=== PATIENT | male | born 1945 | race Caucasian/White ===

== ENCOUNTER → 2018-02-27 | Outpatient (CLI) | payer OTHER ==
[~2018-02-27] MED LIST: IOPAMIDOL (ISOVUE 370) 100 ML BTL IV ONE
== END ==
LOC: FIMAGING 15:41
PROVIDERS: ATTEND Internal Medicine
DX: R93.5 Abnormal findings on diagnostic imaging of other abdominal regions, including retroperitoneum (principal); Z95.828 Presence of other vascular implants and grafts
CPT/HCPCS: 74174; Q9967

== ENCOUNTER → 2018-07-27 | Outpatient (CLI) | payer OTHER | LOC: FIMAGING 19:05 | PROVIDERS: ATTEND Psychiatry & Neurology Neurology | DX: R90.82 White matter disease, unspecified (principal); R51 Headache; R09.02 Hypoxemia; G47.00 Insomnia, unspecified ==

== ENCOUNTER → 2018-08-24 | Outpatient (CLI) | payer OTHER | LOC: FIMAGING 15:26 | PROVIDERS: ATTEND Psychiatry & Neurology Neurology | DX: M50.33 Other cervical disc degeneration, cervicothoracic region (principal); Z98.1 Arthrodesis status ==

== ENCOUNTER 2018-09-18 21:29 | Emergency (ER) | payer OTHER ==
--- NOTE | 2018-09-18 21:50 | EDPHY ---
H & P Stated Complaint: MENCHACA today with HTN 190s at home Time Seen by Provider: 09/18/18 21:45 HPI/ROS: CHIEF COMPLAINT: Headache, hypertension HISTORY OF PRESENT ILLNESS: The patient presents to the ED for evaluation of a 3 day history of occipital headache. The patient noted that his blood pressure was high this evening with a systolic blood pressure of 190 at home. The patient typically takes 10 mg of amlodipine at night which she had taken earlier today. The patient denies any history of fall or trauma. 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 The patient denies any acute numbness or weakness. He denies any history of fall or trauma. He denies additional acute complaints. REVIEW OF SYSTEMS: A comprehensive 10 point review of systems is otherwise negative aside from elements mentioned in the history of present illness. Source: Patient Exam Limitations: No limitations - Personal History Current Tetanus/Diphtheria Vaccine: Yes Current Tetanus Diphtheria and Acellular Pertussis (TDAP): Yes - Medical/Surgical History Hx Asthma: No Hx Chronic Respiratory Disease: No Hx Diabetes: Yes Hx Cardiac Disease: Yes Hx Renal Disease: No Hx Cirrhosis: No Hx Alcoholism: No Hx HIV/AIDS: No Hx Splenectomy or Spleen Trauma: No Other PMH: HTN, multiple sclerosis, cervical stenosis, COPD, heart murmur, lower back stenosis, menieres disease, fibromyalgia, PVC, Charcot foot, arthritis, AAA, bypass, - Physical Exam Exam: General Appearance: Alert, no distress Eyes: Pupils equal and round no pallor or injection ENT, Mouth: Mucous membranes moist Respiratory: There are no retractions, lungs are clear to auscultation Cardiovascular: Regular rate and rhythm Gastrointestinal: Abdomen is soft and nontender, no masses, bowel sounds normal Neurological: A&O, normal motor function, normal sensory exam, normal cranial nerves Skin: Warm and dry, no rashes Musculoskeletal: Neck is supple nontender Extremities: symmetrical, full range of motion Psychiatric: Patient is oriented X 3, there is no agitation Constitutional: Initial Vital Signs Temperature (C) 37.0 C 09/18/18 21:30 Heart Rate 68 09/18/18 21:30 Respiratory Rate 18 09/18/18 21:30 Blood Pressure 177/91 H 09/18/18 21:30 O2 Sat (%) 93 09/18/18 21:30 O2 Delivery Mode Room Air Allergies/Adverse Reactions: duloxetine [From Cymbalta] Allergy (Verified 09/18/18 21:37) lisinopril Allergy (Verified 09/18/18 21:37) beta misael Allergy (Uncoded 09/18/18 21:37) Home Medications: Medication Instructions Recorded Allopurinol 09/18/18 Amlodipine Besylate 09/18/18 Aspirin 09/18/18 Co Q-10 09/18/18 Crestor 09/18/18 DIAZEPAM 09/18/18 Hydrocodone/Acetaminophen 09/18/18 Lasix 09/18/18 Liopic Acid 09/18/18 Multivitamin 09/18/18 Potassium Cl 09/18/18 Vitamin D3 09/18/18 traZODone 09/18/18 Medical Decision Making - Diagnostics Imaging Results: Head CT scan without contrast: Images reviewed by myself and discussed with radiologist Dr. Iniguez. Impression negative for intracranial hemorrhage or other abnormal finding. ED Course/Re-evaluation: Patient presents the ED with complaints of elevated blood pressure associated with a mild occipital headache. Given the fact the patient recently been on Xarelto I did perform a noncontrast head CT scan which demonstrates no evidence of intracranial hemorrhage. The patient's systolic blood pressure is in the 180 range here at the hospital. He is neurologically intact. The patient has allergies to beta blockers and Andre inhibitors. The patient is comfortable contacting his honey processor tomorrow to get additional recommendations for blood pressure management. Patient has been instructed to return to the ED for markedly worsening symptoms or other concerns. Differential Diagnosis: Differential diagnosis considered includes hypertensive emergency, hypertensive urgency, intracranial hemorrhage, stroke, TIA Departure - Departure Disposition: Home, Routine, Self-Care Clinical Impression: Headache, Hypertension Condition: Good Instructions: Hypertension (ED) Additional Instructions: 1. Please contact your honey processor tomorrow morning and review your blood pressure log and discuss the possibility of adding additional medications to treat your hypertension. 2. Please return to the ED for markedly worsening headache, numbness, weakness or other concerns. Referrals: Jimmy No MD [Primary Care Provider] - As per Instructions
[2018-09-18 22:47] VITALS: BP 162/80
== END 2018-09-18 23:02 | disposition home or self-care (01) ==
DX: R51 Headache (principal); I10 Essential (primary) hypertension; I48.91 Unspecified atrial fibrillation; E11.9 Type 2 diabetes mellitus without complications; G35 Multiple sclerosis; J44.9 Chronic obstructive pulmonary disease, unspecified; R01.1 Cardiac murmur, unspecified; M48.061 Spinal stenosis, lumbar region without neurogenic claudication; H81.09 Meniere's disease, unspecified ear; M79.7 Fibromyalgia; I73.9 Peripheral vascular disease, unspecified; I25.10 Atherosclerotic heart disease of native coronary artery without angina pectoris; Z79.01 Long term (current) use of anticoagulants; Z95.1 Presence of aortocoronary bypass graft

== ENCOUNTER 2018-09-26 14:46 | Emergency (ER) | payer OTHER ==
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
[2018-09-26] MEDS ORDERED: IOPAMIDOL (ISOVUE-300) 100 ML BTL ONE (15:57)
[2018-09-26 17:19] VITALS: BP 126/89
[2018-09-26] MEDS ORDERED: HYDROCODONE/APAP 5/325 TAB PO ONE ×2 (17:23→17:26)
[2018-09-26] MEDS ORDERED: HYDROCODONE/APAP 5/325 TAB ONE (17:23)
== END 2018-09-26 17:31 | disposition home or self-care (01) ==
LOC: EDUNIT#
DX: S80.02XA Contusion of left knee, initial encounter (principal); S90.31XA Contusion of right foot, initial encounter; S09.90XA Unspecified injury of head, initial encounter; R07.9 Chest pain, unspecified; M25.511 Pain in right shoulder; M25.512 Pain in left shoulder; G35 Multiple sclerosis; V49.59XA Passenger injured in collision with other motor vehicles in traffic accident, initial encounter; Y92.410 Unspecified street and highway as the place of occurrence of the external cause; Z79.01 Long term (current) use of anticoagulants
CPT/HCPCS: 82435-PO; 82565-PO; 82947-PO; 84132-PO; 84295-PO; 84520-PO; 85014-ER; Q9967

== ENCOUNTER → 2018-10-19 | Outpatient (CLI) | payer OTHER | LOC: FIMAGING 18:31 | PROVIDERS: ATTEND Internal Medicine | DX: S46.012A Strain of muscle(s) and tendon(s) of the rotator cuff of left shoulder, initial encounter (principal); M19.071 Primary osteoarthritis, right ankle and foot ==

== ENCOUNTER → 2018-11-02 | Outpatient (CLI) | payer OTHER | LOC: FIMAGING 14:14 | DX: I71.4 Abdominal aortic aneurysm, without rupture (principal); T82.898A Other specified complication of vascular prosthetic devices, implants and grafts, initial encounter; I10 Essential (primary) hypertension; E78.5 Hyperlipidemia, unspecified | CPT/HCPCS: 74174; Q9967 ==

== ENCOUNTER → 2018-11-30 | Outpatient (CLI) | payer OTHER | LOC: FIMAGING 15:57 ==